=== PATIENT | female | born 1990 | race African-American/Black ===

== ENCOUNTER 2016-09-25 17:34 | Emergency (ER) | payer MEDICAID ==
[2016-09-25 17:54] VITALS: TEMP 99.1
[2016-09-25 17:58] VITALS: O2SAT 98
--- NOTE | 2016-09-25 18:20 | UCPHY ---
H & P Patient Type: Established Chief Complaint Nursing Narrative: pt states cough since friday with sore throat friday and loss of voice since yesterday. Time Seen by Provider: 09/25/16 18:05 HPI/ROS: Chief Complaint: Cough, sore throat, nasal congestion HPI: 26-year-old female presenting with 2 days of cough with sore throat starting 3 days ago. Nasal congestion. Cough is dry nonproductive cough with occasional yellow sputum. No fevers or chills. Mild headache. No nausea or vomiting. ROS: 10 point Review of Systems is negative except as noted in the HPI. PMH: Type 2 diabetes Medications: Metformin Allergies: No known drug allergies Social History: No smoking, no alcohol, no recreational drug use Family History: non-contributory Physical Exam: Gen: Awake, Alert, No Distress HEENT: Ears: Normal Nose: no rhinorrhea Eyes: PERRLA, EOMI Mouth: Moist mucosa oropharynx is normal Neck: Supple, no JVD Chest: nontender, lungs clear to auscultation Heart: S1, S2 normal, no murmur Abd: Soft, non-tender, no guarding Back: no CVA tenderness, no midline tenderness Ext: no edema, non-tender Skin: no rash Neuro: CN II-XII intact, Sensation grossly intact, Strength 5/5 in bilateral upper and lower extremities - Personal History LMP (Females 10-55): 8-14 Days Ago Current Tetanus/Diphtheria Vaccine: Yes Current Tetanus Diphtheria and Acellular Pertussis (TDAP): Yes - Medical/Surgical History Hx Asthma: No Hx Chronic Respiratory Disease: No Hx Diabetes: Yes Hx Cardiac Disease: No Hx Renal Disease: No Hx Cirrhosis: No Hx Alcoholism: No Hx HIV/AIDS: No Hx Splenectomy or Spleen Trauma: No Other PMH: Diabetic 2 - Family History Significant Family History: No pertinent family hx - Social History Smoking Status: Never smoked Constitutional: Initial Vital Signs Temperature (C) 37.3 C 09/25/16 17:51 Heart Rate 107 H 09/25/16 17:51 Respiratory Rate 18 09/25/16 17:51 Blood Pressure 158/137 H 09/25/16 17:51 O2 Sat (%) 95 09/25/16 17:51 O2 Delivery Mode Room Air Allergies/Adverse Reactions: No Known Allergies Allergy (Unverified 09/25/16 17:50) Home Medications: Medication Instructions Recorded Metformin HCl 09/25/16 Medical Decision Making ED Course/Re-evaluation: 26-year-old with viral upper respiratory symptoms. Benign exam here. Will discharge with instructions for outpatient follow-up with primary care physician return if things worsen. Departure - Departure Disposition: Home, Routine, Self-Care Clinical Impression: Viral upper respiratory illness Condition: Good Instructions: Viral Syndrome (ED) Additional Instructions: You may take [id number] decongestants for symptoms. Alternate ibuprofen with acetaminophen as needed for fevers, chills, aches, or pains. Follow up with primary care physician in 2-4 days if symptoms are not improving. Referrals: MONTRELL HILLIARD,. [Primary Care Provider] - As per Instructions - PQRS PQRS Measurement: NA
[2016-09-25 19:08] VITALS: BP 137/78; PULSE 94; RESP 18
== END 2016-09-25 18:31 | disposition home or self-care (01) ==
LOC: CED 17:34
DX: J06.9 Acute upper respiratory infection, unspecified (principal)
CPT/HCPCS: 99214-PO; G0463-PO

== ENCOUNTER 2016-11-30 20:26 | Emergency (ER) | payer MEDICAID ==
[2016-11-30] MEDS ORDERED: IBUPROFEN 600 MG TAB PO ONE (20:46)
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
[2016-11-30] MEDS ORDERED: IOPAMIDOL (ISOVUE-300) 100 ML BTL ONE ×2 (21:27→22:42)
[2016-11-30] MEDS ORDERED: CYCLOBENZAPRINE 10MG PREPACK#3 BTL TAKEHOME ONE ×2 (23:20→23:27)
[2016-11-30 23:36] VITALS: BP 151/90; PULSE 95; RESP 14; TEMP 97.9; O2SAT 98
== END 2016-11-30 23:32 | disposition home or self-care (01) ==
LOC: CED 20:26
DX: S16.1XXA Strain of muscle, fascia and tendon at neck level, initial encounter (principal); S46.911A Strain of unspecified muscle, fascia and tendon at shoulder and upper arm level, right arm, initial encounter; S20.219A Contusion of unspecified front wall of thorax, initial encounter; E11.9 Type 2 diabetes mellitus without complications; Z79.84 Long term (current) use of oral hypoglycemic drugs; V49.50XA Passenger injured in collision with unspecified motor vehicles in traffic accident, initial encounter; Y92.410 Unspecified street and highway as the place of occurrence of the external cause
CPT/HCPCS: 71020-PO; 71260-PO; 72125-PO; 82947-QW; 84703-PO; Q9967

== ENCOUNTER 2017-04-08 13:48 | Emergency (ER) | payer MEDICAID ==
[2017-04-08 14:02] VITALS: BP 150/109; TEMP 98.6
[2017-04-08] MEDS ORDERED: IBUPROFEN 600 MG TAB PO ONE ×3 (14:31→14:38)
[2017-04-08] MEDS ORDERED: IBUPROFEN 200 MG TAB PO ONE ×2 (14:36→14:38)
[2017-04-08 14:49] LABS: COLOR YELLOW; LEUKOCYTE ESTERASE,URINE NEGATIVE (NEGATIVE); NITRITE,URINE NEGATIVE (NEGATIVE)
[2017-04-08] MEDS ORDERED: ACETAMINOPHEN 500 MG TAB PO ONE (14:53)
--- NOTE | 2017-04-08 14:55 | EDPHY ---
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 She describes the pain as peak intensity 8/10 achy in nature worse with movement. The pain is left lumbar more than right lumbar in location does not radiate down her legs. She tried Tylenol last night without improvement. She notes no other exacerbating factors. She reports having had similar pain with low back strain in the past but the relates that the location of the pain was more isolated in the past and current more generalized pain. ROS: No fevers or chills. No fatigue. HEENT: No complaints Pulmonary: No cough Cardiovascular: No complaints except for feet swelling when she is on her feet for long periods of time she is longstanding and unchanged symptom for her. GI: No abdominal pain : No UTI symptoms. Last menstrual period was 3 weeks ago. Endocrine: She is not certain of for recent blood sugars that she does not check it. No polyuria or polydipsia. No vision blurring. Integumentary: No skin rash 10 point ROS is otherwise negative. 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 Smoking Status: Never smoked Physical Exam: Pleasant morbidly obese young black female with hypertension. Other vital signs are normal General Appearance: Alert, no distress. Eyes: Pupils equal and round no pallor or injection. ENT, Mouth: Mucous membranes moist. Respiratory: There are no retractions, lungs are clear to auscultation. Cardiovascular: Regular rate and rhythm. No murmur gallop or rub Gastrointestinal: Abdomen is soft and nontender, no masses, bowel sounds normal. Back: No midline tenderness. She has lumbar paraspinous muscular tenderness and mild spasm bilaterally. She has limited range of motion for flexion due to pain. Straight leg raise is negative bilaterally. Neurological: GCS 15. Patient has no light touch sensory deficits or lower extremities. She maintains 5/5 strength in great toe dorsiflexion plantar flexion bilaterally. She maintains 1+ symmetric patellar and Achilles DTRs bilaterally. Skin: Warm and dry, no rashes. Psychiatric: Patient is oriented X 3, there is no agitation. DIFFERENTIAL DIAGNOSIS: After history and physical exam differential diagnosis was considered for lumbar strain, disc herniation without radiculopathy, UTI, Constitutional: Initial Vital Signs Temperature (C) 37.0 C 04/08/17 14:00 Heart Rate 90 04/08/17 14:00 Respiratory Rate 20 04/08/17 14:00 Blood Pressure 150/109 H 04/08/17 14:00 O2 Sat (%) 97 04/08/17 14:00 O2 Delivery Mode Room Air Allergies/Adverse Reactions: No Known Allergies Allergy (Verified 04/08/17 14:00) Home Medications: Medication Instructions Recorded Metformin HCl 09/25/16 Ibuprofen [Motrin (*)] 600 mg PO Q6 PRN #30 tab 04/08/17 Methocarbamol [Robaxin 750 mg (*)] 750 - 1,500 mg PO QID PRN #30 tab 04/08/17 MDM/Departure - MDM Diagnostics: Urinalysis is normal. Urine is negative. Medications Given: Discontinued Medications Ibuprofen (Motrin) 800 mg PO EDNOW ONE Stop: 04/08/17 14:32 Last Admin: 04/08/17 14:38 Dose: Not Given ED Course/Re-evaluation: Counseled patient regarding low back strain. She has no evidence of cauda equina, we ruled out and UTI. No other red flag findings. I demonstrated some back stretches that may assist in her symptoms. - Depart Disposition: Home, Routine, Self-Care Clinical Impression: Low back strain Qualifiers: Encounter type: initial encounter Qualified Code(s): S39.012A - Strain of muscle, fascia and tendon of lower back, initial encounter Condition: Good Instructions: Low Back Strain (ED) Additional Instructions: DX: Low back strain Plan: Ibuprofen 400-600 mg per 6 hours regularly for the next week then as needed. Methocarbamol muscle relaxants as needed. Tylenol in addition as needed for pain. Starts daily stretches prior to taking muscle relaxants and Vicodin in the morning. 3-5 minutes each of: "Butterfly stretch," "Sphinx stretch", "pigeon stretch", and hamstring stretch. Avoid lifting more than 5-10 pounds until symptoms improve. Call your primary care physician for a followup appointment in 3-7 days. Go to the emergency department for worsening of your symptoms despite the treatment plan. Stand Alone Forms: Work Excuse Referrals: NONE *PRIMARY CARE P,. [Primary Care Provider] - As per Instructions Coreen Mares MD [Medical Doctor] - As per Instructions
[2017-04-08 15:09] VITALS: PULSE 85; RESP 18; O2SAT 98
== END 2017-04-08 15:06 | disposition home or self-care (01) ==
LOC: CED 13:48
DX: S39.012A Strain of muscle, fascia and tendon of lower back, initial encounter (principal); E11.9 Type 2 diabetes mellitus without complications; Z79.84 Long term (current) use of oral hypoglycemic drugs; X58.XXXA Exposure to other specified factors, initial encounter
CPT/HCPCS: 81003-PO; 81025-PO